=== PATIENT | male | born 1985 | race Caucasian/White ===

== ENCOUNTER 2016-10-08 18:45 | Emergency (ER) | payer OTHER ==
--- NOTE | 2016-10-08 20:00 | DIAGNOSTIC IMAGING REPORT ---
PROCEDURE: CT HEAD WITHOUT CONTRAST INDICATION: HEADACHE TECHNIQUE: Axial CT images were acquired through the head. Coronal and sagittal reformations were created. COMPARISON: Most recent CT from [place] is 12/30/2010. FINDINGS: There is a large area of encephalomalacia involving the right frontal lobe cortex, white matter tracts, and deep odell matter/basal ganglia. Asymmetric ex vacuo dilatation of the frontal horn right lateral ventricle results. No acute intraparenchymal or extraaxial hemorrhage. No mass or midline shift. Third and fourth ventricles lie midline. No acute edema. There is a right frontotemporal parietal craniotomy. No acute fractures. Mucous retention cyst in the left posterior ethmoid air cells. Sinuses are otherwise normally aerated. Soft tissues are normal. IMPRESSION: 1. No CT evidence of acute intracranial process. 2. Large area of remote right frontal lobe volume loss with overlying craniotomy changes. 3. Findings discussed with Arline at [address] scans at this facility use dose modulation, iterative reconstruction, and/or weight-based dosing when appropriate to reduce radiation dose to as low as reasonably achievable.
--- NOTE | 2016-10-08 20:01 | ED ORDER SUMMARY ---
..... Patient: MARIE CADENA OrderSheet [facility] VisitID: [id number] [place] [address] 31y, M Registration Date/Time: 10/08/2016 ORDER SHEET Weight: 83.0 kg (stated) Allergies: No Known Drug Allergy GENERAL ORDERS: Cervical Spine 2 or 3V Urgent (19:11 10/08/2016 EKoroleva P.A.-C) (Ack 19:22 ALawrence ER Tech1) (19:36 ALawrence ER Tech1) CT Head wo Cont Urgent (19:11 10/08/2016 EKoroleva P.A.-C) (Ack 19:22 ALawrence ER Tech1) (19:36 ALawrence ER Tech1) Elbow 3 or 4V Left Urgent (19:11 10/08/2016 EKoroleva P.A.-C) (Ack 19:22 ALawrence ER Tech1) (19:36 ALawrence ER Tech1) MEDICATION ORDERS: Tylenol PO 650 mg (NOW) (20:03 10/08/2016 EKoroleva P.A.-C) (Ack 20:04 HSoule) (20:07 HSoule) IV FLUIDS: ORDER SHEET NOTES: [Electronically signed by Denisse Alba (20:41 10/08/2016)] [Electronically signed by Latonya Nunn P.A.-C (21:21 10/08/2016)] [Electronically locked/signed by Denisse Alba (20:41 10/08/2016)]
--- NOTE | 2016-10-08 20:01 | ED CLINICAL REPORT ---
Clinical Report - Physicians/Mid Levels [facility] [address] [place] [address] 10/08/2016 18:45 Patient: MARIE CADENA Time Seen: 19:46 Oct 08 2016. Arrived- By private vehicle. Historian- patient. HISTORY OF PRESENT ILLNESS Chief Complaint: FALL. Location of injuries- (Head/ elbow). The injury occurred just prior to arrival. Fell. Occurred at home. The patient complains of mild pain. The patient sustained a blow to the head, complains of neck pain and had loss of consciousness. (Fell while ambulating out of bath, onto left elbow/ head/ neck. Patient denies LOC, reports falling and striking the posterior aspect of his head and neck, and laying still for a while until coming to sentences. Patient with previous traumatic brain injury. Patient is right-hand dominant. Denies any other major injuries to the left elbow. Denies LOC. Has had no emesis. No medications prior to arrival. Patient lives in a alf, one of the caregivers is here in the emergency department with him.). REVIEW OF SYSTEMS No hearing loss or laceration. He has no pain on weight bearing. All systems otherwise negative, except as recorded above. ADDITIONAL NOTES The nursing notes have been reviewed. PHYSICAL EXAM Vital Signs: 10/08/2016 18:57 BP: 133/85. HR: 77. RR: 20. O2 saturation: 97%. Temp: 97.7 F. Pain level now: 2/10. Appearance: Alert. No acute distress. No backboard or C-collar. Head: Head non-tender. Eyes: Pupils equal, round and reactive to light. EOM intact. No abnormal funduscopic findings. No ocular injury. Neck: Non-tender. No vertebral tenderness. Posterior neck: No tenderness or swelling. CVS: Heart sounds normal. Pulses normal. Respiratory: Breath sounds normal. Chest nontender. No chest wall injury. Abdomen: No visible injury. Back: No tenderness. ROM normal. No tenderness or vertebral point tenderness. Skin: Skin intact. Skin warm. Extremities: Left arm. No tenderness or laceration. Left elbow: mild tenderness and swelling. No abrasion, foreign body or deformity. No localization or limitation in ROM. Left wrist. No tenderness or laceration. Pelvis stable. Neuro: Oriented X 3. No alteration in mental status. LABS, X-RAYS, AND EKG C-Spine X-rays: (IMPRESSION: 1. Normal cervical spine. Electronically Final signed by:Demetrice Bojorquez MD 10/08/2016 8:01:59 PM). Lt Elbow X-ray: (IMPRESSION: 1. Intact left elbow. Electronically Final signed by:Demetrice Bojorquez MD 10/08/2016 8:02:51 PM). CT Head: (IMPRESSION: 1. No CT evidence of acute intracranial process. 2. Large area of remote right frontal lobe volume loss with overlying craniotomy changes. 3. Findings discussed with Arline at [address] scans at this facility use dose modulation, iterative reconstruction, and/or weight-based dosing when appropriate to reduce radiation dose to as low as reasonably achievable. Electronically Final signed by:Demetrice Bojorquez MD 10/08/2016 8:00:24 PM). PROGRESS AND PROCEDURES Course of Care: Patient here in the emergency department with no signs of fracture of the cervical spine or elbow. No signs of intracranial hemorrhage. No laceration. Able to ambulate with assistance, here with caregive Discharged to home care. Patient is stable. Symptoms better. Patient/family counseled. Disposition: Discharged. CLINICAL IMPRESSION Minor closed head injury. Cervical strain. Contusion to the left elbow. Fall. INSTRUCTIONS Apply ice. (Electronically signed by Latonya Nunn P.A.-C 10/08/2016 21:21)
--- NOTE | 2016-10-08 20:01 | ED ORDER SUMMARY ---
..... Patient: MARIE CADENA OrderSheet [facility] VisitID: [id number] [place] [address] 31y, M Registration Date/Time: 10/08/2016 ORDER SHEET Weight: 83.0 kg (stated) Allergies: No Known Drug Allergy GENERAL ORDERS: Cervical Spine 2 or 3V Urgent (19:11 10/08/2016 EKoroleva P.A.-C) (Ack 19:22 ALawrence ER Tech1) (19:36 ALawrence ER Tech1) CT Head wo Cont Urgent (19:11 10/08/2016 EKoroleva P.A.-C) (Ack 19:22 ALawrence ER Tech1) (19:36 ALawrence ER Tech1) Elbow 3 or 4V Left Urgent (19:11 10/08/2016 EKoroleva P.A.-C) (Ack 19:22 ALawrence ER Tech1) (19:36 ALawrence ER Tech1) MEDICATION ORDERS: Tylenol PO 650 mg (NOW) (20:03 10/08/2016 EKoroleva P.A.-C) (Ack 20:04 HSoule) (20:07 HSoule) IV FLUIDS: ORDER SHEET NOTES: [Electronically signed by Denisse Alba (20:41 10/08/2016)] [Electronically signed by Latonya Nunn P.A.-C (21:21 10/08/2016)] [Electronically locked/signed by Denisse Alba (20:41 10/08/2016)]
--- NOTE | 2016-10-08 20:01 | DIAGNOSTIC IMAGING REPORT ---
PROCEDURE: XR CERVICAL SPINE 2 OR 3 VIEW INDICATION: NECK TRAUMA/INJURY TECHNIQUE: Three views of the cervical spine were obtained. COMPARISON: None. Correlation made to CT scan of the head performed the same day FINDINGS: The odontoid view is suboptimal, however the C1-2 vertebral bodies are well seen on CT scan of the head. The other cervical vertebral bodies are normal in height and alignment. The disk spaces are normally maintained. There is no prevertebral soft-tissue swelling or suspicious calcification. The airway is patent. The soft tissues of the neck appear normal. IMPRESSION: 1. Normal cervical spine.
--- NOTE | 2016-10-08 20:01 | ED CLINICAL REPORT ---
Clinical Report - Physicians/Mid Levels [facility] [address] [place] [address] 10/08/2016 18:45 Patient: MARIE CADENA Time Seen: 19:46 Oct 08 2016. Arrived- By private vehicle. Historian- patient. HISTORY OF PRESENT ILLNESS Chief Complaint: FALL. Location of injuries- (Head/ elbow). The injury occurred just prior to arrival. Fell. Occurred at home. The patient complains of mild pain. The patient sustained a blow to the head, complains of neck pain and had loss of consciousness. (Fell while ambulating out of bath, onto left elbow/ head/ neck. Patient denies LOC, reports falling and striking the posterior aspect of his head and neck, and laying still for a while until coming to sentences. Patient with previous traumatic brain injury. Patient is right-hand dominant. Denies any other major injuries to the left elbow. Denies LOC. Has had no emesis. No medications prior to arrival. Patient lives in a retirement, one of the caregivers is here in the emergency department with him.). REVIEW OF SYSTEMS No hearing loss or laceration. He has no pain on weight bearing. All systems otherwise negative, except as recorded above. ADDITIONAL NOTES The nursing notes have been reviewed. PHYSICAL EXAM Vital Signs: 10/08/2016 18:57 BP: 133/85. HR: 77. RR: 20. O2 saturation: 97%. Temp: 97.7 F. Pain level now: 2/10. Appearance: Alert. No acute distress. No backboard or C-collar. Head: Head non-tender. Eyes: Pupils equal, round and reactive to light. EOM intact. No abnormal funduscopic findings. No ocular injury. Neck: Non-tender. No vertebral tenderness. Posterior neck: No tenderness or swelling. CVS: Heart sounds normal. Pulses normal. Respiratory: Breath sounds normal. Chest nontender. No chest wall injury. Abdomen: No visible injury. Back: No tenderness. ROM normal. No tenderness or vertebral point tenderness. Skin: Skin intact. Skin warm. Extremities: Left arm. No tenderness or laceration. Left elbow: mild tenderness and swelling. No abrasion, foreign body or deformity. No localization or limitation in ROM. Left wrist. No tenderness or laceration. Pelvis stable. Neuro: Oriented X 3. No alteration in mental status. LABS, X-RAYS, AND EKG C-Spine X-rays: (IMPRESSION: 1. Normal cervical spine. Electronically Final signed by:Demetrice Bojorquez MD 10/08/2016 8:01:59 PM). Lt Elbow X-ray: (IMPRESSION: 1. Intact left elbow. Electronically Final signed by:Demetrice Bojorquez MD 10/08/2016 8:02:51 PM). CT Head: (IMPRESSION: 1. No CT evidence of acute intracranial process. 2. Large area of remote right frontal lobe volume loss with overlying craniotomy changes. 3. Findings discussed with Arline at [address] scans at this facility use dose modulation, iterative reconstruction, and/or weight-based dosing when appropriate to reduce radiation dose to as low as reasonably achievable. Electronically Final signed by:Demetrice Bojorquez MD 10/08/2016 8:00:24 PM). PROGRESS AND PROCEDURES Course of Care: Patient here in the emergency department with no signs of fracture of the cervical spine or elbow. No signs of intracranial hemorrhage. No laceration. Able to ambulate with assistance, here with caregive Discharged to home care. Patient is stable. Symptoms better. Patient/family counseled. Disposition: Discharged. CLINICAL IMPRESSION Minor closed head injury. Cervical strain. Contusion to the left elbow. Fall. INSTRUCTIONS Apply ice. (Electronically signed by Latonya Nunn P.A.-C 10/08/2016 21:21)
--- NOTE | 2016-10-08 20:01 | ED NURSING NOTES ---
Clinical Report - Nurses [facility] [address] [place] [address] 10/08/2016 18:45 Patient: MARIE CADENA TRIAGE Triage time 18:57. Acuity: LEVEL 3. Chief Complaint: FALL while walking, onto a tile surface and hard surface (Out of bath). Alert. No acute distress. TERESA COMA SCORE: [place] Coma Scale: 15- eyes open spontaneously (4); best verbal response- oriented x 4 (5); best motor response- obeys commands (6). --19:06 Afsaneh Jacinto R.N. 18:57 10/08/16. BP: 133/85. HR: 77. RR: 20. O2 saturation: 97%. Temp: 97.7 F. Pain level now: 05/15. --19:06 Afsaneh Jacinto R.N. 18:57 10/08/16. BP: 133/85. HR: 77. RR: 20. O2 saturation: 97%. Temp: 97.7 F. Pain level now: 05/15. --19:06 Afsaneh Jacinto R.N. Weight: 83 kg stated. Height/Length: 67 inches Per Patient. BMI: 28.7. --19:00 Afsaneh Jacinto R.N. Medications Multi-Vitamin Daily Oral. --19:12 Afsaneh Jacinto R.N. OXcarbazepine Oral (Tablet 300 mg) 5 tablets, daily. Vimpat Oral (Tablet 200 mg) 1 tablet, twice daily. Vitamin D Oral (Capsule 1000 unit) 1 capsule, daily. --19:12 Afsaneh Jacinto R.N. Naproxen Oral. --19:13 Afsaneh Jacinto R.N. Allergies No Known Drug Allergy. --19:12 Afsaneh Jacinto R.N. History Arrived by private vehicle. 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 Location of injuries: back and left elbow. This occurred just prior to arrival. He has had left arm pain (Lt elbow with abrsion,). Limited ROM present (uses walker). No loss of consciousness. No neck pain. Treatment BATTERY ASSEMBLER: None. Trauma activation: Pre-hospital notification of patient arrival was not received. PAST MEDICAL HX: Tetanus status: up-to-date. SOCIAL HX: Never smoker. No alcohol use or drug use. FALL RISK ASSESSMENT: Fall risk assessment completed. No fall risk identified. NUTRITIONAL RISK ASSESSMENT: The nutritional risk assessment revealed no deficiencies. FUNCTIONAL ASSESSMENT: Functional assessment: no impairments noted. LEARNING NEEDS ASSESSMENT: The learning needs assessment revealed no barriers. SKIN INTEGRITY ASSESSMENT: Skin integrity risk assessment completed. No skin integrity risk identified. --19:06 Afsaneh Jacinto R.N. SOCIAL HX: Never smoker. History of heavy drug use: marijuana. Recently used drugs just prior to arrival. No alcohol use. --19:13 Afsaneh Jacinto R.N. PROBLEMS: Fall. Vertigo. Dizziness. Headache. Contusion. Drug Poisoning. Brain injury. --19:05 Afsaneh Jacinto R.N. Seizure [Resolved]. --19:05 Afsaneh Jacinto R.N. ADDITIONAL SURGERIES: Craniotomy. Seizure. --19:05 Afsaneh Jacinto R.N. Interventions ID band on patient. To room. --19:06 Afsaneh Jacinto R.N. PHYSICAL ASSESSMENT Ambulatory to room. Patient gowned. GENERAL / NEURO / PSYCH: Alert. Oriented X 4. Appears in no acute distress. Appears in pain and anxious. HEENT: Head non-tender. RESPIRATORY: Respirations not labored. CVS: Capillary refill less than 2 seconds. EXTREMITIES: Limited ROM present. SKIN: Skin is warm and dry. --19:06 Afsaneh Jacinto R.N. NURSING PROGRESS NOTES Extremity elevated. Patient gowned. Two patient identifiers checked. Call light placed in reach. Side rails up x 2. Bed placed in lowest position. Brakes of bed on. Patient ready for evaluation. --19:07 Afsaneh Jacinto R.N. 20:07 10/08/2016 Tylenol (Acetaminophen) PO Tablets 650 mg given. Allergies verified and confirmed 5 rights. --20:07 Denisse Alba. DISPOSITION / DISCHARGE 20:09 10/08/16. Condition at departure: stable. The goals identified in the patient's plan of care were met. No learning barriers present. Discharge instructions provided and reviewed with the caregiver and patient. Reviewed need for increased fluid intake. Patient verbalized understanding. Written instructions provided in Occitan. Caregiver verbalized understanding. ( Ice for twenty minutes at a time. Take an anti-inflammatory as needed. Discussed head injury precautions with caregiver. Patient and caregiver verbalized understanding and had no questions at this time.). The patient was discharged by the physician sales and marketing assistant. He was discharged home and accompanied by caregiver. He left the Emergency Department ambulatory and via private vehicle. Driving (caregiver). FALL RISK ASSESSMENT: Fall risk assessment completed. No fall risk identified. --20:09 Denisse Alba 20:08 10/08/16. BP: 138/60. HR: 70. RR: 20. O2 saturation: 100% on room air. --20:09 Denisse Alba. Locked/Released at 10/08/2016 20:41 by Denisse Alba,
--- NOTE | 2016-10-08 20:01 | ED NURSING NOTES ---
Clinical Report - Nurses [facility] [address] [place] [address] 10/08/2016 18:45 Patient: MARIE CADENA TRIAGE Triage time 18:57. Acuity: LEVEL 3. Chief Complaint: FALL while walking, onto a tile surface and hard surface (Out of bath). Alert. No acute distress. TERESA COMA SCORE: [place] Coma Scale: 15- eyes open spontaneously (4); best verbal response- oriented x 4 (5); best motor response- obeys commands (6). --19:06 Afsaneh Jacinto R.N. 18:57 10/08/16. BP: 133/85. HR: 77. RR: 20. O2 saturation: 97%. Temp: 97.7 F. Pain level now: 05/15. --19:06 Afsaneh Jacinto R.N. 18:57 10/08/16. BP: 133/85. HR: 77. RR: 20. O2 saturation: 97%. Temp: 97.7 F. Pain level now: 05/15. --19:06 Afsaneh Jacinto R.N. Weight: 83 kg stated. Height/Length: 67 inches Per Patient. BMI: 28.7. --19:00 Afsaneh Jacinto R.N. Medications Multi-Vitamin Daily Oral. --19:12 Afsaneh Jacinto R.N. OXcarbazepine Oral (Tablet 300 mg) 5 tablets, daily. Vimpat Oral (Tablet 200 mg) 1 tablet, twice daily. Vitamin D Oral (Capsule 1000 unit) 1 capsule, daily. --19:12 Afsaneh Jacinto R.N. Naproxen Oral. --19:13 Afsaneh Jacinto R.N. Allergies No Known Drug Allergy. --19:12 Afsaneh Jacinto R.N. History Arrived by private vehicle. 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 Location of injuries: back and left elbow. This occurred just prior to arrival. He has had left arm pain (Lt elbow with abrsion,). Limited ROM present (uses walker). No loss of consciousness. No neck pain. Treatment CARDIOLOGY TEACHER: None. Trauma activation: Pre-hospital notification of patient arrival was not received. PAST MEDICAL HX: Tetanus status: up-to-date. SOCIAL HX: Never smoker. No alcohol use or drug use. FALL RISK ASSESSMENT: Fall risk assessment completed. No fall risk identified. NUTRITIONAL RISK ASSESSMENT: The nutritional risk assessment revealed no deficiencies. FUNCTIONAL ASSESSMENT: Functional assessment: no impairments noted. LEARNING NEEDS ASSESSMENT: The learning needs assessment revealed no barriers. SKIN INTEGRITY ASSESSMENT: Skin integrity risk assessment completed. No skin integrity risk identified. --19:06 Afsaneh Jacinto R.N. SOCIAL HX: Never smoker. History of heavy drug use: marijuana. Recently used drugs just prior to arrival. No alcohol use. --19:13 Afsaneh Jacinto R.N. PROBLEMS: Fall. Vertigo. Dizziness. Headache. Contusion. Drug Poisoning. Brain injury. --19:05 Afsaneh Jacinto R.N. Seizure [Resolved]. --19:05 Afsaneh Jacinto R.N. ADDITIONAL SURGERIES: Craniotomy. Seizure. --19:05 Afsaneh Jacinto R.N. Interventions ID band on patient. To room. --19:06 Afsaneh Jacinto R.N. PHYSICAL ASSESSMENT Ambulatory to room. Patient gowned. GENERAL / NEURO / PSYCH: Alert. Oriented X 4. Appears in no acute distress. Appears in pain and anxious. HEENT: Head non-tender. RESPIRATORY: Respirations not labored. CVS: Capillary refill less than 2 seconds. EXTREMITIES: Limited ROM present. SKIN: Skin is warm and dry. --19:06 Afsaneh Jacinto R.N. NURSING PROGRESS NOTES Extremity elevated. Patient gowned. Two patient identifiers checked. Call light placed in reach. Side rails up x 2. Bed placed in lowest position. Brakes of bed on. Patient ready for evaluation. --19:07 Afsaneh Jacinto R.N. 20:07 10/08/2016 Tylenol (Acetaminophen) PO Tablets 650 mg given. Allergies verified and confirmed 5 rights. --20:07 Denisse Alba. DISPOSITION / DISCHARGE 20:09 10/08/16. Condition at departure: stable. The goals identified in the patient's plan of care were met. No learning barriers present. Discharge instructions provided and reviewed with the caregiver and patient. Reviewed need for increased fluid intake. Patient verbalized understanding. Written instructions provided in Belarusian. Caregiver verbalized understanding. ( Ice for twenty minutes at a time. Take an anti-inflammatory as needed. Discussed head injury precautions with caregiver. Patient and caregiver verbalized understanding and had no questions at this time.). The patient was discharged by the physician training program assistant. He was discharged home and accompanied by caregiver. He left the Emergency Department ambulatory and via private vehicle. Driving (caregiver). FALL RISK ASSESSMENT: Fall risk assessment completed. No fall risk identified. --20:09 Denisse Alba 20:08 10/08/16. BP: 138/60. HR: 70. RR: 20. O2 saturation: 100% on room air. --20:09 Denisse Alba. Locked/Released at 10/08/2016 20:41 by Denisse Alba,
--- NOTE | 2016-10-08 20:02 | DIAGNOSTIC IMAGING REPORT ---
PROCEDURE: XR ELBOW 3 OR 4 VIEWS - LEFT INDICATION: TRAUMA/INJURY TECHNIQUE: Four views of the left elbow. COMPARISON: None. FINDINGS: There was difficulty positioning the patient for adequate views. Given this, there is normal mineralization. No fractures. Normal osseous alignment. No joint effusion. No suspicious soft-tissue calcification or radiodense foreign bodies. IMPRESSION: 1. Intact left elbow.
--- NOTE | 2016-10-08 21:21 | ED MED RECONCILIATION SUMMARY ---
Patient: MARIE CADENA Medication Reconciliation Report [facility] VisitID: [id number] [address] [place] [address] 31y, M Registration Date/Time: 10/08/2016 Weight: 83.0 kg Height/Length: 67 in. BMI: 28.7 ALLERGIES: No Known Drug Allergy The patient's Home Medications are listed below: THE FOLLOWING MEDICATIONS NEED TO BE RECONCILED: Multi-Vitamin Daily Oral Naproxen Oral OXcarbazepine Oral (300 mg) 5 tablets, daily Vimpat Oral (200 mg) 1 tablet, twice daily Vitamin D Oral (1000 unit) 1 capsule, daily The source(s) of the original Home Medication information: Not obtained. The following Medications were given to the patient in the Emergency Department: Tylenol [PO] PO 650 mg, administered: 10/08/2016 8:07:00 PM The following Medications were prescribed to the patient: None.
--- NOTE | 2016-10-08 21:21 | ED MED RECONCILIATION SUMMARY ---
Patient: MARIE CADENA Medication Reconciliation Report [facility] VisitID: [id number] [address] [place] [address] 31y, M Registration Date/Time: 10/08/2016 Weight: 83.0 kg Height/Length: 67 in. BMI: 28.7 ALLERGIES: No Known Drug Allergy The patient's Home Medications are listed below: THE FOLLOWING MEDICATIONS NEED TO BE RECONCILED: Multi-Vitamin Daily Oral Naproxen Oral OXcarbazepine Oral (300 mg) 5 tablets, daily Vimpat Oral (200 mg) 1 tablet, twice daily Vitamin D Oral (1000 unit) 1 capsule, daily The source(s) of the original Home Medication information: Not obtained. The following Medications were given to the patient in the Emergency Department: Tylenol [PO] PO 650 mg, administered: 10/08/2016 8:07:00 PM The following Medications were prescribed to the patient: None.
--- NOTE | 2016-10-08 21:21 | ED MAR SUMMARY ---
..... Medication Administration Record [facility] [address] [place] [address] Patient: MARIE CADENA Visit ID: [id number] 31y, M Weight: 83.0 kg Height/Length: 67 in BMI: 28.7 ALLERGIES: No Known Drug Allergy Given 20:07 10/08/2016 Denisse Alba, Medication Administered: TYLENOL [PO] (ACETAMINOPHEN), Dose: 650 mg Tablets PO. Medication Ordered: Tylenol PO 650 mg (NOW).
--- NOTE | 2016-10-08 21:21 | ED DISCHARGE INSTRUCTIONS ---
Patient: MARIE CADENA General Instructions [facility] VisitID: [id number] [place] [address] 31y, M Registration Date/Time: 10/08/2016 Minor closed head injury. Cervical strain. Contusion to the left elbow. Fall. INSTRUCTIONS Apply ice. ADDITIONAL INFORMATION Mechanical Fall You have had a fall today. It appears that the cause is mechanical. That means that you slipped, tripped or lost your balance. If your fall had been due to fainting or a seizure, further tests would be required. Home Care: Rest today and resume your normal activities when you are feeling back to normal. If you were injured during the fall, follow the advice from your doctor regarding care of your injury. You may use acetaminophen (Tylenol) or ibuprofen (Motrin, Advil) to control pain, unless another pain medicine was prescribed. [NOTE: If you have chronic liver or kidney disease or ever had a stomach ulcer or GI bleeding, talk with your doctor before using these medicines.] Fall Prevention: Was there anything that caused your fall that can be fixed, removed, or replaced? Make your home safe by keeping walkways clear of objects you may trip over. Use non-slip pads under rugs. Do not walk in poorly lit areas. Do not stand on chairs or wobbly ladders. Use caution when reaching overhead or looking upward. This position can cause a loss of balance. Be sure your shoes fit properly, have non-slip bottoms and are in good condition. Be cautious when going up and down curbs, and walking on uneven sidewalks. If your balance is poor, consider using a cane or walker. Stay as active as you can. Balance, flexibility, strength, and endurance all come from exercise. They all play a role in preventing falls. Follow Up with your doctor or as advised by our staff. Get Prompt Medical Attention if any of the following occur: Repeated mechanical falls, or unexplained falls Dizziness, fainting or seizure Severe headache Chest pain or shortness of breath Palpitations (very rapid or very slow or irregular heartbeat) Blood in vomit, stools (black or red color) Weakness of an arm or leg or one side of the face Difficulty with speech or vision Neck Sprain Or Strain A sudden force that causes turning or bending of the neck (such as in a car accident) can stretch or tear muscles (strain) and ligaments (sprain) and cause neck pain. Sometimes neck pain occurs after a simple awkward movement. In either case, muscle spasm is commonly present and contributes to the pain. Unless you had a forceful physical injury (for example, a car accident or fall), X-rays are usually not ordered for the initial evaluation of neck pain. If pain continues and dose not respond to medical treatment, X-rays and other tests may be performed at a later time. Home care The following guidelines will help you care for your injury at home: You may feel more soreness and spasm the first few days after the injury. Reduce your activity level until symptoms begin to improve. When lying down, use a comfortable pillow that supports the head and keeps the spine in a neutral position. The position of the head should not be tilted forward or backward. Use ice packs (ice in a plastic bag, wrapped in a towel) to treat acute pain. Apply for 20 minutes every 24 hours during the first two days. Then, begin local heat (hot shower, hot bath or heating pad) andmassageto reduce muscle spasm. Some patients feel best alternating hot and cold treatments, or just staying with one method only. Do what feels the best to you and gives the most relief. You may use acetaminophen or ibuprofen to control pain, unless another pain medicine was prescribed.If you have chronic liver or kidney disease or ever had a stomach ulcer or GI bleeding, talk with your doctor before using these medicines. Follow-up care Follow up with your physician or this facility if your symptoms do not show signs of improvement. Physical therapy may be needed. If you had X-rays today, they didnt show any broken bones, breaks, or fractures. Sometimes fractures dont show up on the first X-ray. Bruises and sprains can sometimes hurt as much as a fracture. These injuries can take time to heal completely. If your symptoms dont improve or they get worse, talk with your doctor. You may need a repeat X-ray. When to seek medical care Get prompt medical attention if any of the following occur: Pain becomes worse or spreads into your arms Weakness or numbness in one or both arms Neck Pain [No Trauma] There are several possible causes of neck pain without injury: You can get a minor ligament sprain or muscle strain from a sudden minor neck movement. Sleeping with your neck in an awkward position can also cause this. Some persons respond to emotional stress by tensing the muscles of their neck, shoulders and upper back. Chronic spasm in these muscles can cause neck pain and sometimes headaches. Gradualwear and tearof the joints in the spine can cause degenerative arthritis.This can be a source of occasional or chronic neck pain. With aging or repeated small injuries to the neck, the spinal disks (the cushions between each spinal bone) may bulge and put pressure on a nearby spinal nerve. This causes tingling, pain or numbness spreading from the neck to the shoulder, arm or hand on one side. Acute neck pain usually gets better in one to two weeks. Neck pain related to disk disease, arthritis in the spinal joints or spinal stenosis (narrowing of the spinal canal) can become chronic and last for months or years. Unless you had a forceful physical injury (for example, a car accident or fall), X-rays are usually not ordered for the initial evaluation of neck pain. If pain continues and does not respond to medical treatment, x-rays and other tests may be performed at a later time. Home Care: Rest and relax the muscles. Use a comfortable pillow that supports the head and keeps the spine in a neutral position. The position of the head should not be tilted forward or backward. A rolled up towel may help for a custom fit. Some persons find relief with heat (hot shower, hot bath or heating pad) and massage, while others prefer cold packs (crushed or cubed ice in a plastic bag, wrapped in a towel) . Try both and use the method that feels best for 20 minutes several times a day. You may use acetaminophen (Tylenol) or ibuprofen (Motrin, Advil) to control pain, unless another medicine was prescribed. [ NOTE : If you have chronic liver or kidney disease or ever had a stomach ulcer or GI bleeding, talk with your doctor before using these medicines.] Follow Up with your physician or this facility if your symptoms do not show signs of improvement after one week. Physical therapy or further tests may be needed. [NOTE: A radiologist will review any X-rays or CT scans that were taken. We will notify you of any new findings that may affect your care.] Get Prompt Medical Attention if any of the following occur: Pain becomes worse or spreads into one or both arms Weakness or numbness in one or both arms Increasing headache Neck swelling, difficulty or painful swallowing Fever of 100.4F (38C) or higher, or as directed by your healthcare provider Contusion:Upper Extremity You have a contusion of your upper extremity (arm, wrist, hand or fingers). This causes local pain, swelling and sometimes bruising. There are no broken bones. This injury takes a few days to a few weeks to heal. A sling may be provided for comfort and arm support. Home Care: 1) Keep your arm elevated to reduce pain and swelling. This is very important during the first 48 hours. 2) Apply an ice pack (ice cubes in a plastic bag, wrapped in a towel) over the injured area for 20 minutes every 1-2 hours the first day for pain relief. Continue this 3-4 times a day until the pain and swelling goes away. 3) You may use acetaminophen (Tylenol) or ibuprofen (Motrin, Advil) to control pain, unless another pain medicine was prescribed. [ NOTE : If you have chronic liver or kidney disease or ever had a stomach ulcer or GI bleeding, talk with your doctor before using these medicines.] 4) If a sling was provided, you may remove it to shower or bathe. Do not wear it for more than one week or it may cause joint stiffness. Follow Up with your doctor or this facility if you are not starting to improve within the next THREE days. [NOTE: If X-rays were taken, they will be reviewed by a radiologist. You will be notified of any new findings that may affect your care.] Get Prompt Medical Attention if any of the following occur: -- Pain or swelling increases -- Redness, warmth or drainage -- Hand or fingers becomes cold, blue, numb or tingly Head Injury, No Wake-Up (Adult) You have had a head injury. It does not appear serious at this time. Symptoms of a more serious problem (concussion, bruising, or bleeding in the brain) may appear later. Therefore, watch for the WARNING SIGNS listed below. Home Care: Your healthcare provider will tell you whether its okay to drive. If so, you can drive yourself home. For the next day or so, be careful when driving or using heavy machinery until you are sure you have no delayed symptoms. During the next 24 hours someone must stay with you to check for the signs below. It is not necessary to stay awake or be awakened during the night. If you have swelling of the face or scalp, apply an ice pack (ice cubes in a plastic bag, wrapped in a towel) for 20 minutes. Do this every 1-2 hours until the swelling starts to go down. Do not use aspirin or ibuprofen (Motrin, Advil) after a head injury.You may use acetaminophen (Tylenol)to control pain, unless another pain medicine was prescribed. [NOTE: If you have chronic liver or kidney disease or ever had a stomach ulcer or GI bleeding, talk with your doctor before using these medicines.] For the next 24 hours: Do not take alcohol, sedatives or medicines that make you sleepy. Avoid strenuous activities. No lifting or straining. If you have had any symptoms of a concussion today (nausea, vomiting, dizziness, confusion, headache, memory loss or if you were knocked out), do not return to sports or any activity that could result in another head injury until all symptoms are gone and you have been cleared by your doctor. A second head injury before fully recovering from the first one can lead to serious brain injury. Follow Up with your doctor if symptoms are not improving after 24 hours, or as directed. [NOTE: A radiologist will review any X-rays or CT scans that were taken. We will notify you of any new findings that may affect your care.] Get Prompt Medical Attention if any of the followingWARNING SIGNS occur: Repeated vomiting Severe or worsening headache or dizziness Unusual drowsiness, or unable to awaken as usual Confusion or change in behavior or speech, memory loss, blurred vision Convulsion (seizure) Increasing scalp or face swelling Redness, warmth or pus from the swollen area Fluid drainage or bleeding from the nose or ears You have been given the following additional information: Fall, Mechanical Neck Sprain/Strain Neck Pain, No Trauma Contusion, Upper Extremity HEAD INJURY, No Wake-Up (Adult) (Electronically signed by Latonya Nunn P.A.-C 10/08/2016 21:21)
--- NOTE | 2016-10-08 21:21 | ED MAR SUMMARY ---
..... Medication Administration Record [facility] [address] [place] [address] Patient: MARIE CADENA Visit ID: [id number] 31y, M Weight: 83.0 kg Height/Length: 67 in BMI: 28.7 ALLERGIES: No Known Drug Allergy Given 20:07 10/08/2016 Denisse Alba, Medication Administered: TYLENOL [PO] (ACETAMINOPHEN), Dose: 650 mg Tablets PO. Medication Ordered: Tylenol PO 650 mg (NOW).
== END 2016-10-08 20:10 | disposition home or self-care (01) ==
LOC: ED SRH 18:45
DX: S09.90XA Unspecified injury of head, initial encounter (principal); S16.1XXA Strain of muscle, fascia and tendon at neck level, initial encounter; S50.02XA Contusion of left elbow, initial encounter; W18.2XXA Fall in (into) shower or empty bathtub, initial encounter; Y92.002 Bathroom of unspecified non-institutional (private) residence as the place of occurrence of the external cause